=== PATIENT | female | born 1945 | race Caucasian/White ===

== ENCOUNTER 2017-10-16 11:05 | Emergency (ER) | payer MEDICARE, OTHER ==
[2017-10-16 12:02] LABS: Bilirubin Negative (Negative); Blood, Urine Negative (Negative); Clarity CLEAR (Clear); Glucose, Urine (Dipstick) >=1000 mg/dL (Negative); Leukocyte Negative (Negative); Nitrite Negative (Negative); Protein, Urine (Dipstick) Negative (Neg-Trace); Urobilinogen 0.2 mg/dL (0.2-1.0); pH, Urine 7.5 (5.0-9.0)
[2017-10-16 12:10] LABS: #Basophils 0.1 thou/uL (0.0-0.2); #Eosinphils 0.5 thou/uL (0.0-0.7); #Lymphocytes 2.4 thou/uL (1.20-3.40); #Monocytes 0.7 thou/uL (0.11-0.59); #Neutrophils 4.4 thou/uL (1.40-6.50); %Basophils 0.9 % (0.0-1.0); %Lymphocytes 29.5 % (21.0-51.0); %Monocytes 8.9 % (0.0-10.0); %Neutrophils 54.6 % (42.0-75.0); Hemoglobin 14.4 g/dL (12.0-16.0); Mean Corpuscular HGB CONC 34.8 g/dL (32.0-36.0); Mean Corpuscular Hemoglobin 31.3 pg (27.0-31.0); Mean Corpuscular Volume 90.2 fL (78.0-98.0); Mean Platelet Volume 6.6 fL (7.4-10.4); Platelet Count 312 thou/uL (130-400); RBC Distribution Width 12.4 % (11.5-14.5); White Blood Cell (WBC) Count 8.1 thou/uL (4.8-10.8)
[2017-10-16 12:28] LABS: ALT (SGPT) 13 U/L (8-55); AST (SGOT) 15 U/L (5-34); Albumin 4.6 g/dL (3.4-4.8); Alkaline Phosphatase 36 U/L (40-150); Anion Gap 15 mmol/L (10-20); BUN (Urea Nitrogen) 24 mg/dL (9.8-20.1); Bilirubin, Total 0.5 mg/dL (0.2-1.2); Calc. Creatinine Clearance 0 mL/min (70-130); Calcium 10.1 mg/dL (7.8-10.44); Carbon Dioxide 25 mmol/L (23-31); Chloride 106 mmol/L (98-107); Estimated GFR-MDRD 53; Globulin 2.8 g/dL (2.4-3.5); Glucose 114 mg/dL (83-110); Potassium 4.6 mmol/L (3.5-5.1); Protein, Total 7.4 g/dL (6.0-8.3); Sodium 141 mmol/L (136-145)
[2017-10-16] MEDS ORDERED: Ondansetron HCl/PF 4 MG/2 ML Vial ONE (12:57)
[2017-10-16] MEDS ORDERED: Meclizine HCl 25 MG TAB ONE (12:57)
[2017-10-16] MEDS ORDERED: ISOVUE-370 76%-LOCM 1 ML ONE (15:04)
--- NOTE | 2017-10-16 15:38 | CT ---
CT HEAD WITH AND WITHOUT CONTRAST WITH CTA HEAD POST CONTRAST: Multiple axial tomograms obtained through the head both pre- and post-IV contrast. Post-contrast deann ges were obtained in a cerebral angio protocol with multiplanar reconstruction and 3D post processing . INDICATION: Vertigo and dizziness. FINDINGS: The unenhanced CT head shows normal-appearing ventricles. There is no evidence of intracranial mass, hemorrhage, or infarct. The visualized sinuses and mastoids are well aerated. IMPRESSION: Unremarkable unenhanced CT head. CT ANGIO HEAD: Multiple axial tomograms obtained through the head with arterial phase enhancement. The intracranial internal carotid arteries are patent and symmetric. The anterior cerebral arteries, middle cerebral arteries, basilar artery, and posterior cerebral arteries appear normal and symmetri c. No evidence of stenosis or occlusion. IMPRESSION: Unremarkable cerebral angio of head. POS: [facility]ANS
== END 2017-10-16 15:50 | disposition home or self-care (01) ==
LOC: ERS 11:05
DX: E86.0 Dehydration (principal); I10 Essential (primary) hypertension; E78.5 Hyperlipidemia, unspecified; E11.9 Type 2 diabetes mellitus without complications; Z79.899 Other long term (current) drug therapy
CPT/HCPCS: 36415; 70496; 80053; 81003; 85025; 93005; 96361; 96374; J2405